=== PATIENT | male | born 1970 | race Caucasian/White ===

== ENCOUNTER 2016-07-26 05:35 | Emergency (ER) | payer MEDICAID ==
[2016-07-26 05:43] VITALS: BP 116/82; PULSE 83; RESP 16; TEMP 97.9; O2SAT 98
[2016-07-26 06:03] LABS: COLOR YELLOW; LEUKOCYTE ESTERASE,URINE NEGATIVE (NEGATIVE); NITRITE,URINE NEGATIVE (NEGATIVE)
--- NOTE | 2016-07-26 06:05 | EDPHY ---
H & P Time Seen by Provider: 07/26/16 05:49 HPI/ROS: HPI Left lower back pain. 45-year-old male by private vehicle. He thinks that he through his left lower back out. He reports that he woke up yesterday morning with pain to the left SI joint area. He denies any history of trauma but states that he has had this pain a couple of times in the past which has been attributed to twisting his lower back awkwardly. He reports he thinks he may have slept awkwardly or twisted his lower back in the night. He also reports that he recently did a cleanse which consisted of taking niacin and then activated charcoal in sitting and a heart hot tub. There is no history of trauma. He has had no fevers. No history of malignancy. No abdominal pain. No loss of sensation or weakness in his lower extremities. No bowel or bladder incontinence. No other red flags. ROS: Constitutional: No fever, no chills. No weakness. Gastrointestinal: No abdominal pain, no vomiting, no diarrhea. Genitourinary: No hematuria. No dysuria or increased frequency with urination. Musculoskeletal: As above. Skin: No rashes. Neurological: No headache. No focal weakness or altered sensation. Past medical history: Depression, drug abuse, hyperlipidemia. Social history: Here by himself. Nonsmoker. Physical Exam: General Appearance: Alert, no distress. This patient is responding to questions appropriately and in full sentences. This patient appears well- hydrated and well-nourished. Eyes: Pupils equal and round no pallor or injection. No lid edema, erythema or injection. Back exam: No midline cervical, thoracic, lumbar sacral tenderness on palpation. He does have some vague and mild tenderness over the left SI joint. No associated soft tissue changes. No ecchymosis, no edema or erythema. No warmth. He has a negative same side and cross side straight leg raise test. He is neurologically intact in all myotomes in dermatomes of the bilateral lower extremities. Gastrointestinal: Abdomen is soft and nontender, no masses, bowel sounds normal. No focal tenderness at McBurney's point. No Torres sign. Neurological: Motor sensory function is grossly intact. Cranial nerves are normal. Gait is normal. Skin: Warm and dry, no rashes. Musculoskeletal: As above. No CVA tenderness bilaterally. Extremities are symmetrical. All joints range without pain or impingement. Psychiatric: No agitation. No depression. Database: EKG: Imaging: Procedures: Emergency department course: No red flags regarding this patient's history or on his physical exam for back pain. Urinalysis was negative. Ureterolithiasis, pyelonephritis, nephritis unlikely. Plan will be to treat him with high-dose ibuprofen for 3 days and Flexeril as needed for 2-3 days. He is in agreement with this plan. Follow-up and return to emergency department precautions have been reviewed. All of his questions were answered. He was discharged home in good condition. Differential Diagnosis: The differential diagnosis on this patient includes but is not limited to left sacroiliac strain. Pyelonephritis, ureterolithiasis, nephritis, epidural compression syndrome, acute radiculopathy, cauda equina syndrome, traumatic spinal injury, malignancy, epidural abscess unlikely. This represents a partial list of diagnoses considered. These considerations are based on history , physical exam, past history, reassessment and diagnostic testing. Smoking Status: Current every day smoker Constitutional: Initial Vital Signs Temperature (C) 36.6 C 07/26/16 05:40 Heart Rate 83 07/26/16 05:40 Respiratory Rate 16 07/26/16 05:40 Blood Pressure 116/82 H 07/26/16 05:40 O2 Sat (%) 98 07/26/16 05:40 O2 Delivery Mode Room Air Allergies/Adverse Reactions: No Known Allergies Allergy (Verified 07/26/16 05:40) Home Medications: Medication Instructions Recorded Cyclobenzaprine [Flexeril 10 MG 10 mg PO TID #9 tab 07/26/16 (*)] Medical Decision Making - Data Points Laboratory Results: 07/26/16 05:30 Urine Color Pending Urine Appearance Pending Urine pH Pending Ur Specific [place] Pending Urine Protein Pending Urine Ketones Pending Urine Blood Pending Urine Nitrate Pending Urine Bilirubin Pending Urine Urobilinogen Pending Ur Leukocyte Esterase Pending Urine RBC Pending Urine WBC Pending Ur Epithelial Cells Pending Ur Culture Indicated? Pending Urine Glucose Pending Departure - Departure Disposition: Home, Routine, Self-Care Clinical Impression: Sacroiliac strain Condition: Good Instructions: Low Back Strain (ED) Additional Instructions: Read and follow provided instructions. Follow-up with your primary care physician in 2-3 days for re-evaluation as discussed. Take medication as prescribed. Ibuprofen dosin mg every 6 hours with meals for the next 3 days only. Return to the emergency department for worsening pain, bowel or bladder incontinence, loss of sensation or weakness in lower extremities, fever or other serious concerns. Referrals: NONE *PRIMARY CARE P,. [Primary Care Provider] - As per Instructions Prescriptions: Cyclobenzaprine [Flexeril 10 MG (*)] 10 mg PO TID #9 tab
[2016-07-26] MEDS ORDERED: IBUPROFEN 600 MG TAB PO ONE (06:09)
== END 2016-07-26 06:15 | disposition home or self-care (01) ==
DX: S39.012A Strain of muscle, fascia and tendon of lower back, initial encounter (principal); F17.200 Nicotine dependence, unspecified, uncomplicated; X50.1XXA Overexertion from prolonged static or awkward postures, initial encounter; Y93.89 Activity, other specified

== ENCOUNTER → 2016-09-13 | Outpatient (CLI) | payer MEDICAID | LOC: FIMAGING 12:00 | PROVIDERS: ATTEND Physician Assistant | DX: R76.11 Nonspecific reaction to tuberculin skin test without active tuberculosis (principal) ==

== ENCOUNTER 2016-09-24 18:00 | Emergency (ER) | payer MEDICAID ==
[2016-09-24] MEDS ORDERED: NS 1,000 ML IV ONE (19:03)
[2016-09-24 20:49] LABS: % IMMATURE GRANULYOCYTES 0.5 % (0.0-1.1); ABSOLUTE IMMATURE GRANULOCYTES 0.04 10^3/uL (0.00-0.10); ADD DIFF? NO; ADD MORPH? NO; ADD SCAN? NO; ATYPICAL LYMPHOCYTE FLAG 10 (0-99); FRAGMENT RBC FLAG 0 (0-99); HEMATOCRIT 49.7 % (40.0-51.0); HEMOGLOBIN 17.1 g/dL (13.7-17.5); LEFT SHIFT FLG 10 (0-99); LIPEMIA HEMOLYSIS FLAG 90 (0-99); MEAN CELL HEMOGLOBIN 30.3 pg (27.9-34.1); MEAN CELL HEMOGLOBIN CONCENTR. 34.4 g/dL (32.4-36.7); MEAN CELL VOLUME 88.1 fL (81.5-99.8); MEAN PLATELET VOLUME 8.7 fL (8.7-11.7); PLATELET CLUMPS FLAG 0 (0-99); PLATELET COUNT 268 10^3/uL (150-400); RED BLOOD CELL COUNT 5.64 10^6/uL (4.40-6.38); RED CELL DISTRIBUTION WIDTH 13.2 % (11.5-15.2)
[2016-09-24 20:58] LABS: ANION GAP 11 mEq/L (8-16); CALCIUM 9.2 mg/dL (8.5-10.4); CARBON DIOXIDE 25 mEq/l (22-31); CHLORIDE 101 mEq/L (97-110); CREATININE 0.9 mg/dL (0.7-1.3); ETHANOL SERUM < 10 mg/dL (0-10); GLOMERULAR FILTRATION RATE > 60; GLUCOSE 106 mg/dL (70-100); SODIUM 137 mEq/L (134-144)
--- NOTE | 2016-09-24 21:47 | EDPHY ---
H & P Smoking Status: Current every day smoker Time Seen by Provider: 09/24/16 18:18 HPI/ROS: CHIEF COMPLAINT: Substance abuse, paranoid HISTORY OF PRESENT ILLNESS: 46-year-old male presents to the emergency department with substance abuse. Patient admits to smoking methamphetamines for the last 3 days. He states today he became increasingly paranoid. He denies suicidal or homicidal ideation. The patient states that he was sober from methamphetamines and alcohol for several months and then began abusing again just a few days ago. He currently has no physical complaints. He states that he slept 4 hours last night and the night before. He denies chest pain or difficulty breathing. Denies abdominal pain or vomiting. His appetite has been normal. He is recently homeless. REVIEW OF SYSTEMS: Constitutional: No fever, no chills. Eyes: No double or blurry vision. ENT: No sore throat. Respiratory: No cough, no shortness of breath. Cardiac: No chest pain. Gastrointestinal: No abdominal pain, vomiting or diarrhea. Genitourinary: No dysuria. Musculoskeletal: No neck or back pain. Skin: No rashes. Neurological: No headache. (Nikki Nichols) Past Medical/Surgical History: Alcoholism, substance abuse (Nikki Nichols) Social History: Currently homeless (Nikki Nichols) Physical Exam: General Appearance: Alert, no distress. Initially the patient was tachycardic. No visible signs of trauma to his head. Eyes: Pupils equal and round. Extraocular motions are all intact. ENT: Mouth: Mucous membranes moist. Respiratory: No wheezing, rhonchi, or rales, lungs are clear to auscultation. Cardiovascular: Regular rate and rhythm. Gastrointestinal: Abdomen is soft and nontender, no masses, no rebound or guarding, bowel sounds normal. Neurological: Alert and oriented x 3, cranial nerves II through XII grossly intact Skin: Warm and dry, no rashes. Musculoskeletal: Nontender to palpate along the cervical, thoracic or lumbar spine. Neck is supple. Extremities: Full range of motion and no peripheral edema. Psychiatric: Patient is oriented X 3, there is no agitation. (Nikki Nichols) Constitutional: Initial Vital Signs Temperature (C) 37.2 C 09/24/16 18:12 Heart Rate 125 H 09/24/16 18:12 Respiratory Rate 17 05/05/17 18:12 Blood Pressure 159/113 H 09/24/16 18:12 O2 Sat (%) 96 09/24/16 18:12 O2 Delivery Mode Room Air Allergies/Adverse Reactions: No Known Allergies Allergy (Verified 09/24/16 18:12) Home Medications: Medication Instructions Recorded NK [No Known Home Meds] 09/24/16 Medical Decision Making ED Course/Re-evaluation: 46-year-old male presents to the emergency department after using methamphetamines. He is not suicidal or homicidal. He was feeling paranoid. The patient was awaiting mental health evaluation. His laboratory studies were normal. After being monitored for over 4 hours. The patient was feeling much better. His heart rate was down in the 90s. He is requesting to be discharged. He is not suicidal homicidal. He declined mental health evaluation. He would like to be discharged. I did give him information regarding addiction recovery Center. (Nikki Nichols) I did not see this patient while he was in the emergency department. However his care was discussed with the PA while the patient was in the department. I agree with treatment plan and management (Maximiliano Alvarenga) Differential Diagnosis: Altered mental status including but not limited to hypoglycemia, infectious process, electrolyte abnormality, head injury and intoxicants. (Nikki Nichols) - Data Points Laboratory Results: Laboratory Results 09/24/16 18:40 09/24/16 18:40 Medications Given: Discontinued Medications Sodium Chloride (Ns) 1,000 mls @ 0 mls/hr IV ONCE ONE PRN Reason: Wide Open Stop: 09/24/16 19:04 Last Admin: 09/24/16 19:46 Dose: 1,000 mls Departure - Departure Disposition: Home, Routine, Self-Care Clinical Impression: Polysubstance abuse Condition: Good Instructions: Polysubstance Abuse (ED) Additional Instructions: You can go to the [facility] to help with your methamphetamine and alcohol abuse. Referrals: [facility] [Outside] - As per Instructions
[2016-09-24 22:09] VITALS: BP 148/102; PULSE 89; RESP 16; TEMP 98.6; O2SAT 96
== END 2016-09-24 22:09 | disposition home or self-care (01) ==
DX: F19.10 Other psychoactive substance abuse, uncomplicated (principal)
CPT/HCPCS: 80305; G0480

== ENCOUNTER 2016-12-28 18:34 | Emergency (ER) | payer MEDICAID ==
[2016-12-28 18:54] LABS: COLOR PALE YELLOW; LEUKOCYTE ESTERASE,URINE NEGATIVE (NEGATIVE); NITRITE,URINE NEGATIVE (NEGATIVE)
--- NOTE | 2016-12-28 20:49 | EDPHY ---
H & P Stated Complaint: Dysuria/urgency x 3 days;denies penile discharge Time Seen by Provider: 12/28/16 19:41 HPI/ROS: Chief complaint: Discomfort with urination History of present illness: This is a 46-year-old male who presents to the emergency department for evaluation treatment of discomfort with urination. Patient reports the onset of symptoms over the last 3-4 days. He states he has a persistent discomfort along his urethra. He states it does hurt every time he urinates. He denies associated signs or symptoms including no discharge from the penis. There is no testicular swelling or pain. No abdominal pain, no nausea, vomiting or changes in stool habits. No fever. He denies precipitating factors. He denies alleviating factors. He has never had similar. - Personal History Current Tetanus Diphtheria and Acellular Pertussis (TDAP): Yes - Medical/Surgical History Hx Asthma: No Hx Chronic Respiratory Disease: No Hx Diabetes: No Hx Cardiac Disease: No Hx Renal Disease: No Hx Cirrhosis: No Hx Alcoholism: Yes Hx HIV/AIDS: No Hx Splenectomy or Spleen Trauma: No Other PMH: DEPRESSION, drug abuse, hyperlipidemia, - Social History Smoking Status: Current every day smoker Additional Social History: Patient denies recent sexual contact or significant STI risk factors - Physical Exam Exam: General Appearance: Alert, Nontoxic Eyes: Pupils equal and round no injection. Respiratory: Chest is non tender, lungs are clear to auscultation. Cardiac: regular rate and rhythm Gastrointestinal: Abdomen is soft and non tender, no masses, bowel sounds normal. Genitourinary exam: There is no urethral discharge. Penis is without lesions. Scrotum is without lesions. The testicles and surrounding cord structures are non edematous and nontender. No hernias are appreciated. No inguinal adenopathy appreciated. No rash. No CVA tenderness. Musculoskeletal: Neck is supple and non tender. Extremities have full range of motion and are non tender. Skin: No rashes or lesions. Constitutional: Initial Vital Signs Temperature (C) 36.5 C 12/28/16 18:36 Heart Rate 66 12/28/16 18:36 Respiratory Rate 16 12/28/16 18:36 Blood Pressure 115/88 H 12/28/16 18:36 O2 Sat (%) 100 12/28/16 18:36 O2 Delivery Mode Room Air Allergies/Adverse Reactions: No Known Allergies Allergy (Verified 12/28/16 18:36) Home Medications: Medication Instructions Recorded Doxycycline Hyclate [Vibramycin 100 mg PO BID 7 Days 12/28/16 100 MG (*)] Medical Decision Making ED Course/Re-evaluation: Patient discussed with m secondary supervising physician Dr. Ramesh Hoffman. Patient presents to the emergency department for evaluation treatment of pain with urination and discomfort around the urethra. He is nontoxic. Vital signs are stable. Physical exam is unremarkable. Urinalysis and creatinine unremarkable. Believe this is most consistent with urethritis. Cultures are ordered. I will treat him with antibiotics. Home care is discussed. He is to follow up with Urology for recheck. Strict return precautions are given. Patient voiced understanding and agreement with plan. Differential Diagnosis: included but not limited to urethritis, urinary tract infection, prostatitis, orchitis, epididymitis - Data Points Laboratory Results: 12/28/16 12/28/16 12/28/16 20:44 18:40 18:40 POC Hgb 15.6 gm/dL gm/dL (13.7-17.5) POC Hct 46 % % (40-51) POC Sodium 142 mEq/L mEq/L (134-144) POC Potassium 3.5 mEq/L mEq/L (3.3-5.0) POC Chloride 101 mEq/L mEq/L (97-110) POC BUN 20 mg/dL mg/dL (7-23) POC Creatinine 1.0 mg/dL mg/dL (0.7-1.3) POC Glucose 82 mg/dL mg/dL (70-100) Urine Color PALE YELLOW Urine Appearance CLEAR Urine pH 5.0 (5.0-7.5) Ur Specific [place] 1.009 (1.002-1.030) Urine Protein NEGATIVE (NEGATIVE) Urine Ketones NEGATIVE (NEGATIVE) Urine Blood NEGATIVE (NEGATIVE) Urine Nitrate NEGATIVE (NEGATIVE) Urine Bilirubin NEGATIVE (NEGATIVE) Urine Urobilinogen NEGATIVE EU EU (0.2-1.0) Ur Leukocyte Esterase NEGATIVE (NEGATIVE) Urine Glucose NEGATIVE (NEGATIVE) N.gonorrhoeae RNA (TMA) Pending Point of Care Test Results: 12/28/16 20:44 POC Sodium 142 POC Potassium 3.5 POC Chloride 101 POC BUN 20 POC Creatinine 1.0 POC Glucose 82 Departure - Departure Disposition: Home, Routine, Self-Care Clinical Impression: Urethritis Condition: Good Instructions: Nonspecific Urethritis in Men (ED) Additional Instructions: Follow-up with your primary care doctor or Urology for recheck Take antibiotics as prescribed until finished If symptoms worsen or new symptoms develop return to the emergency room for recheck Referrals: NONE *PRIMARY CARE P,. [Primary Care Provider] - As per Instructions [facility],. [Clinic] - As per Instructions Janina Ledesma MD [Medical Doctor] - As per Instructions Prescriptions: Doxycycline Hyclate [Vibramycin 100 MG (*)] 100 mg PO BID 7 Days
[2016-12-28 21:07] VITALS: BP 135/76; PULSE 62; RESP 20; TEMP 97.9; O2SAT 98
== END 2016-12-28 21:08 | disposition home or self-care (01) ==
DX: N34.2 Other urethritis (principal); B96.89 Other specified bacterial agents as the cause of diseases classified elsewhere; F17.200 Nicotine dependence, unspecified, uncomplicated
CPT/HCPCS: 82947-QW

== ENCOUNTER 2017-04-02 11:27 | Emergency (ER) | payer MEDICAID ==
[2017-04-02 11:38] VITALS: BP 134/91; PULSE 87; RESP 16; TEMP 97.9; O2SAT 97
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
== END 2017-04-02 12:51 | disposition home or self-care (01) ==
DX: F41.9 Anxiety disorder, unspecified (principal); Z87.891 Personal history of nicotine dependence

== ENCOUNTER 2017-08-22 14:26 | Emergency (ER) | payer MEDICAID ==
[2017-08-22 14:30] VITALS: RESP 18
--- NOTE | 2017-08-22 15:26 | EDPHY ---
H & P Time Seen by Provider: 08/22/17 15:05 HPI/ROS: CHIEF COMPLAINT: Anxiety HISTORY OF PRESENT ILLNESS: 46-year-old male with a known history of bipolar presents to the emergency department feeling anxious. He is not suicidal homicidal. He stopped his medication few months ago and like to restart his Paxil and BuSpar. He has a scheduled appointment with his psychiatrist and counselor this week but is requesting some Xanax for his symptoms of anxiety. He denies auditory visual hallucinations. He has been sober from methamphetamines since September of 2016. Denies any other physical complaints. REVIEW OF SYSTEMS: Constitutional: No fever, no chills. Eyes: No double or blurry vision. ENT: No sore throat. Respiratory: No cough, no shortness of breath. Cardiac: No chest pain. Gastrointestinal: No abdominal pain, vomiting or diarrhea. Genitourinary: No dysuria. Musculoskeletal: No neck or back pain. Skin: No rashes. Neurological: No headache. Past Medical/Surgical History: History of substance abuse, anxiety, bipolar Social History: Single Smoking Status: Former smoker Physical Exam: General Appearance: Alert, no distress. Eyes: Pupils equal and round. Extraocular motions are all intact. ENT: Mouth: Mucous membranes moist. Respiratory: No wheezing, rhonchi, or rales, lungs are clear to auscultation. Cardiovascular: Regular rate and rhythm. Gastrointestinal: Abdomen is soft and nontender, no masses, no rebound or guarding, bowel sounds normal. Neurological: Alert and oriented x 3, cranial nerves II through XII grossly intact Skin: Warm and dry, no rashes. Musculoskeletal: Nontender to palpate along the cervical, thoracic or lumbar spine. Neck is supple. Extremities: Full range of motion and no peripheral edema. Psychiatric: Patient is oriented X 3, there is no agitation. Constitutional: Initial Vital Signs Temperature (C) 36.9 C 08/22/17 14:28 Heart Rate 88 08/22/17 14:28 Respiratory Rate 18 08/22/17 14:28 Blood Pressure 132/100 H 08/22/17 14:28 O2 Sat (%) 98 08/22/17 14:28 O2 Delivery Mode Room Air Allergies/Adverse Reactions: No Known Allergies Allergy (Verified 08/22/17 14:28) Home Medications: Medication Instructions Recorded ALPRAZolam [Xanax 0.5 MG (*)] 0.5 mg PO BID PRN #10 tab 04/02/17 ALPRAZolam [Xanax 0.5 MG (*)] 0.5 mg PO BID PRN #11 tab 08/22/17 Medical Decision Making ED Course/Re-evaluation: 46-year-old male presents with a known history of bipolar. Requesting Xanax for his anxiety. Patient was given 0.5 mg of Xanax p.o. Twice daily. Patient declined speaking with mental health. He will keep scheduled follow-up appoint with mental health this week. Differential Diagnosis: Depression including functional and major depression, situational depression, medication side effect, drugs and alcohol abuse. Departure - Departure Disposition: Home, Routine, Self-Care Clinical Impression: Bipolar 1 disorder, Anxiety Condition: Good Instructions: Bipolar Disorder (ED), Anxiety (ED) Additional Instructions: Xanax as needed for symptoms of anxiety. Keep scheduled up with [facility] as discussed. Return to the emergency department if you have suicidal thoughts or other thoughts of harm, or if you feel worse in any way. Referrals: [facility],. [Clinic] - As per Instructions Prescriptions: ALPRAZolam [Xanax 0.5 MG (*)] 0.5 mg PO BID PRN #11 tab PRN Reason: P.r.n. Anxiety
[2017-08-22 15:38] VITALS: BP 146/91; PULSE 83; TEMP 98.6; O2SAT 95
== END 2017-08-22 15:38 | disposition home or self-care (01) ==
DX: F41.9 Anxiety disorder, unspecified (principal); F31.9 Bipolar disorder, unspecified; Z87.891 Personal history of nicotine dependence